=== PATIENT | male | born 1950 | race Caucasian/White ===

== ENCOUNTER 2020-03-11 08:18 | Outpatient (CLI) | payer MEDICARE, OTHER, SELFPAY ==
--- NOTE | ~2020-03-11 | CT_ITS ---
EXAMINATION:CT lung screening DATE: 03/11/2020 08:39 INDICATION: Personal history of nicotine dependence. Current smoker with 54 pack year history. TECHNIQUE: Computed tomography (CT) of the chest was performed without intravenous contrast. Automate d exposure control and iterative reconstruction technique were employed. The dose-length product (DLP ) was 122.87 mGy-cm. COMPARISON: Chest CT 02/06/2019 FINDINGS: There is mild emphysema. There is mild atelectasis bilaterally. Calcified bilateral pulmona ry nodules and calcified hilar and mediastinal lymph nodes are consistent with old granulomatous dise ase. There are a few nodules in the lungs measuring up to 2 mm. There is a new 5 mm nodule in left up per lobe. No pleural effusion. The heart size is normal. There are coronary artery calcifications. No pericardial effusion. There is mild thoracic spondylosis. There is upper thoracic levoscoliosis. IMPRESSION: 1. Lung-RADS category 3: Probably benign. Further evaluation is recommended with noncontrast low-dose chest CT in 6 months. Reviewed, dictated and finalized at location A. IMPRESSION: 1. Lung-RADS category 3: Probably benign. Further evaluation is recommended wit h noncontrast low-dose chest CT in 6 months.
== END 2020-03-11 08:19 | disposition home or self-care (01) ==
PROVIDERS: PCP Emergency Medicine; Visit Provider Emergency Medicine
DX: Z12.2 Encounter for screening for malignant neoplasm of respiratory organs (principal); Z87.891 Personal history of nicotine dependence
CPT/HCPCS: G0297

== ENCOUNTER 2020-10-14 08:26 | Outpatient (CLI) | payer MEDICARE, OTHER, SELFPAY ==
--- NOTE | ~2020-10-14 | CT_ITS ---
EXAMINATION: CT chest wo con DATE: 10/14/2020 08:57 INDICATION: Follow-up pulmonary nodule TECHNIQUE: Computed tomography (CT) of the chest was performed without intravenous contrast. The dose -length product was 268.57 mGy-cm. Automated exposure control and iterative reconstruction technique were employed. COMPARISON: CT dated 03/11/2020 FINDINGS: There are a few scattered pulmonary nodules measuring 2 mm or less. There are calcified pul monary nodules bilaterally, consistent with chronic granulomatous disease. Mild emphysema. No endobro nchial lesions. There is right middle lobe atelectasis. No new pulmonary nodules or masses. Calcified hilar and mediastinal lymph nodes, consistent with chronic granulomatous disease. There is coronary atherosclerosis. Mild thoracic spondylosis. There is upper thoracic levoscoliosis. IMPRESSION: 1. Stable likely benign pulmonary nodules. Twelve-month interval low-dose CT chest recommended. 2: Mild emphysema. Reviewed, dictated and finalized at location A. ZAG STITCHER IMPRESSION: 1. Stable likely benign pulmonary nodules. Twelve-month interval low-dose CT ch est recommended. 2: Mild emphysema.
== END 2020-10-14 08:27 | disposition home or self-care (01) ==
PROVIDERS: PCP Emergency Medicine; Visit Provider Emergency Medicine
DX: R91.1 Solitary pulmonary nodule (principal); J43.9 Emphysema, unspecified; R91.8 Other nonspecific abnormal finding of lung field
CPT/HCPCS: 71250

== ENCOUNTER 2021-12-03 08:58 | Outpatient (CLI) | payer MEDICARE, OTHER, SELFPAY ==
--- NOTE | ~2021-12-03 | CT_ITS ---
EXAMINATION: CT diagnostic chest wo con EXAM DATE: 12/03/2021 09:11 INDICATION: Solitary lung nodule. TECHNIQUE: Spiral CT of the chest without contrast. Axial, coronal and sagittal images of the chest were reviewed. Coronal maximum intensity pixel images of chest reviewed. The dose-length product ( DLP) for this examination was 198.08 mGy-cm. The exposure was tailored according to patient size (au to mA exposure control), and iterative reconstruction (ASIR) was used as additional dose reduction te chnique. Comparison is made to prior examination from 10/14/2020. FINDINGS: Few scattered punctate calcified and noncalcified granulomata unchanged. No new or suspici ous pulmonary nodules. There is mild emphysema and hyperinflation. There are no pleural or pericardi al effusions. Tracheobronchial tree is patent. There is no mediastinal, hilar or axillary lymphad enopathy. There is no pneumothorax. Heart normal in size. There is mild to moderate coronary ar terial calcification, arterial sclerosis. Upper abdomen is unremarkable. There is mild thoracic sp ondylosis without osteoblastic or osteolytic lesions identified. IMPRESSION: 1. Mild emphysema and hyperinflation. 2. Scattered postinfectious residua. Reviewed, dictated and finalized at location A. NER FURNITURE
== END 2021-12-03 08:59 | disposition home or self-care (01) ==
LOC: ANHIMG 09:01
PROVIDERS: PCP Emergency Medicine; Visit Provider Emergency Medicine
DX: R91.1 Solitary pulmonary nodule (principal); I25.10 Atherosclerotic heart disease of native coronary artery without angina pectoris; M47.814 Spondylosis without myelopathy or radiculopathy, thoracic region; I70.0 Atherosclerosis of aorta; J43.9 Emphysema, unspecified
CPT/HCPCS: 71250

== ENCOUNTER 2022-03-18 07:40 | Outpatient (CLI) | payer MEDICARE, OTHER, SELFPAY ==
--- NOTE | ~2022-03-18 | CT_ITS ---
EXAMINATION: CT abdomen pelvis wo/w con DATE: 03/18/2022 08:20 INDICATION: Hematuria TECHNIQUE: Computed tomography (CT) of the abdomen and pelvis was performed without intravenous contr ast. CT of the abdomen and pelvis was then performed with a total of 130 mL Omnipaque 300 intravenous contrast using a double-bolus technique for simultaneous opacification of the renal parenchyma and r enal collecting system. The dose-length product (DLP) was 1177.33 mGy-cm. Automated exposure control and iterative reconstruction technique were employed. COMPARISON: 09/13/2019 FINDINGS: There is mild atelectasis of the right middle lobe. The heart size is normal. Punctate calc ifications in an otherwise normal spleen likely represent healed granulomatous disease. The liver, pa ncreas, gallbladder, and adrenal glands are normal. Cysts of the kidneys measure up to 3.5 cm on the left. No suspicious renal or urothelial lesion is identified. No stones are identified in the kidneys , ureters, or bladder. There is no hydronephrosis or hydroureter. No pathologically enlarged abdomina l or pelvic lymph nodes are identified. There is no free intraperitoneal gas or evidence of bowel obs truction. There is chronic fusiform enlargement at the origin of the right common iliac artery which measures up to 2.5 cm. There is moderate lumbar spondylosis. IMPRESSION: 1. No CT correlate for the patient's symptoms. Reviewed, dictated and finalized at location A.
[2022-03-18 08:05] LABS: Estimated Glomerular Filt Rate > 60
== END 2022-03-18 07:41 | disposition home or self-care (01) ==
LOC: ANHIMG 07:44
PROVIDERS: PCP Emergency Medicine; Visit Provider Emergency Medicine
DX: R31.9 Hematuria, unspecified (principal)
CPT/HCPCS: 74178; Q9967

== ENCOUNTER 2022-12-12 07:08 | Outpatient (CLI) | payer MEDICARE, OTHER, SELFPAY ==
--- NOTE | ~2022-12-12 | CT_ITS ---
EXAMINATION:CT diagnostic chest wo con DATE: 12/12/2022 07:50 INDICATION: Lung nodule. TECHNIQUE: Computed tomography (CT) of the chest was performed without intravenous contrast. Automate d exposure control and iterative reconstruction technique were employed. The dose-length product (DLP ) was 113.22 mGy-cm. COMPARISON: Chest CT 12/03/2021 FINDINGS: There is mild atelectasis bilaterally. Calcified bilateral pulmonary nodules and calcified hilar and mediastinal lymph nodes are consistent with old granulomatous disease. There are 2 mm and 3 mm nodules in right middle lobe. There is a 2 mm nodule in left lower lobe. There is mild emphysema. No pleural effusion. The heart size is normal. There are coronary artery calcifications. No pericard ial effusion. There is mild thoracic spondylosis. IMPRESSION: 1. Lung-RADS category 2: Benign appearance or behavior. Reviewed, dictated and finalized at location A.
--- NOTE | ~2022-12-12 | CT_ITS ---
EXAMINATION: CT abdomen pelvis wo/w con DATE: 12/12/2022 08:03 INDICATION: Microscopic hematuria TECHNIQUE: Computed tomography (CT) of the abdomen and pelvis was performed without and with 100 mL O mnipaque-350 intravenous contrast. Automated exposure control and iterative reconstruction technique were employed. The dose-length product was 1659.37 mGy-cm. COMPARISON: None FINDINGS: Calcified nodule at the lingula and a couple small calcified splenic nodules consistent with old gran ulomatous disease. Mild discoid atelectasis at the lingula and right middle lobe. Heart size is marcello l. Atherosclerotic coronary artery calcific location. Aortic valve calcific location. No pericardial or pleural effusion. Liver, gallbladder, pancreas and right adrenal gland are normal. Unchanged tiny dystrophic calcification at the left adrenal gland likely sequela of prior infection or hemorrhage. B ilateral renal cysts the largest on the left measuring 3.9 cm. Bilateral kidneys are otherwise unrema rkable symmetric enhancement, no urolithiasis or hydronephrosis. Bilateral renal collecting systems a nd ureters are opacified in their near entirety and demonstrate no urothelial irregularities or filli ng defects. Bladder is normal aside from changes likely prior transurethral prostatectomy. There is m oderate colonic diverticulosis with a sigmoid predominance. There is no adjacent inflammatory change to suggest diverticulitis. Small bowel and appendix are normal. No free intraperitoneal gas or fluid . No pathologically enlarged abdominal or pelvic lymphadenopathy. There is calcified atherosclerosis of the aorta and many of the other arteries. 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 Small bilateral fat-containing inguinal hernias. Moderate lower lumba r spondylosis. IMPRESSION: 1. No urolithiasis or other evident etiology for reported hematuria. 2. Diverticulosis. Reviewed, dictated and finalized at location B.
[2022-12-12 07:45] LABS: Estimated Glomerular Filt Rate > 60
== END 2022-12-12 07:09 | disposition home or self-care (01) ==
PROVIDERS: PCP Emergency Medicine; Visit Provider Emergency Medicine
DX: R91.1 Solitary pulmonary nodule (principal); R31.29 Other microscopic hematuria; K57.30 Diverticulosis of large intestine without perforation or abscess without bleeding
CPT/HCPCS: 71250; 74178; Q9967

== ENCOUNTER 2023-12-15 08:05 | Outpatient (CLI) | payer MEDICARE, OTHER, SELFPAY ==
--- NOTE | ~2023-12-15 | CT_ITS ---
CT Scan of the Chest without Contrast: Clinical Indication: Lung cancer screening, history of nicotine dependence Technique: Contiguous sections were acquired throughout the chest without intravenous contrast. Dose reduction technique was used on this scan by utilizing automated exposure control and iterative recon struction technique. The dose-length product (DLP) was 148.11 mGy-cm. COMPARISON: 12/12/2022 Findings: There is no evidence of any significant mediastinal, hilar or axillary lymphadenopathy. Extensive cor onary artery calcifications are present. There is no evidence of pleural or pericardial effusion. Several calcified granulomas are noted. There is linear scarring at the right middle lobe and lingula . Images through the upper abdomen reveal no abnormalities. Impression: Lung RADS 2: Benign appearance. 12 month follow-up screening CT advised. Reviewed, dictated and finalized at [facility]. Impression: Lung RADS 2: Benign appearance. 12 month follow-up screening CT advised.
== END 2023-12-15 08:06 | disposition home or self-care (01) ==
LOC: ANHIMG 08:07
PROVIDERS: PCP Emergency Medicine; Visit Provider Emergency Medicine
DX: Z12.2 Encounter for screening for malignant neoplasm of respiratory organs (principal); Z87.891 Personal history of nicotine dependence
CPT/HCPCS: 71271

== ENCOUNTER 2024-01-05 07:00 | Outpatient (NON) | payer MEDICARE, OTHER, SELFPAY | END 2024-01-05 07:01 | disposition home or self-care (01) | PROVIDERS: PCP Emergency Medicine; Visit Provider Internal Medicine Gastroenterology | DX: Z12.11 Encounter for screening for malignant neoplasm of colon (principal); K63.5 Polyp of colon | CPT/HCPCS: 88305 ==

== ENCOUNTER 2024-01-05 07:58 | Day surgery (SDC) | payer MEDICARE, OTHER, SELFPAY ==
[2023-12-04 14:52] VITALS: BMI 29.3
[2023-12-21 12:56] VITALS: BMI 28.8
--- NOTE | 2024-01-04 13:00 | PM.HPGS ---
History of Present Illness History of Present Illness Consent: Risks, benefits, and alternatives have been discussed and questions answered. Patient agrees to proceed with procedure. Chief complaint: Polyp of colon Narrative: Jeremy Dinero is a 73 year old male referred for colon cancer screening; he had a colonoscopy 6 years ago with removal of 2 innocent polyps. Review of Systems Review of Systems: All systems reviewed & are unremarkable except as noted in HPI and below PMFSH Past Medical History Medical History Emphysema, unspecified mild Hyperlipidemia Family History Family History Other Diabetes mellitus Hypertension Social History Social History Smoking packs per day: 0.5 Smoking cigarettes per day: 10.0 Years smoked: 40 Smoking pack-years: 20.00 Smoking status: Current every day smoker Tobacco type: cigarettes Alcohol intake: current Drinks per week: 10 Substance use: never Substance use type: does not use Living arrangements: with family Spiritual care concerns: No Meds Home Medications and Allergies Home Medications Medication Instructions Recorded Confirmed Type meloxicam 15 mg tablet 15 mg PO DAILY 12/21/23 01/05/24 History rosuvastatin 20 mg tablet 20 mg PO HS 12/21/23 01/05/24 History Allergies Allergy/AdvReac Type Severity Reaction Status Date / Time No Known Allergies Allergy Verified 01/05/24 08:44 Exam Const: General: alert Orientation/consciousness: patient oriented x3 Resp: Auscultation: clear to auscultation bilaterally Cardio: Rhythm: regular rhythm GI: GI Palp: Yes Soft to palpation and No Tenderness to palpation present (GI) Neuro: General: patient oriented x3 Assessment and Plan Assessment and plan (1) Colon cancer screening: Code(s): Z12.11 - Encounter for screening for malignant neoplasm of colon Status: Acute Assessment and Plan: Colonoscopy with possible biopsy or polypectomy or cautery or injection of substances.
--- NOTE | 2024-01-05 08:01 | P.PNAN_ITS ---
Anes - Initial Pre Proc Eval Procedure: Operation Date: 01/05/24 10:00 Proposed Procedures p Diagnostic Colonoscopy - Angel Haji MD Date/Time: 01/05/24 08:01 Surgeon: Angel Haji MD Pre Op Diagnosis: Polyp of colon Patient Data Age: 73 Gender: M Height: 1.73 m Weight: 86 kg Allergies Allergy/AdvReac Type Severity Reaction Status Date / Time No Known Allergies Allergy Verified 01/05/24 08:44 Home Medications Medication Instructions Recorded Confirmed Type meloxicam 15 mg tablet 15 mg PO DAILY 12/21/23 01/05/24 History rosuvastatin 20 mg tablet 20 mg PO HS 12/21/23 01/05/24 History Patient hx anesthesia problems: none Family hx anesthesia problems: none Results Review: All pre-operative results and documents have been reviewed as part of the pre-operative evaluation. [facility] Past Medical History Medical History (Updated 01/05/24 @ 08:02 by Edmar Ren DO) Hyperlipidemia Family History Family History (Updated 01/26/12 @ 12:10 by DOCTOR UNKNOWN) Other Diabetes mellitus Hypertension Social History Social History Smoking packs per day: 0.5 Smoking cigarettes per day: 10.0 Years smoked: 40 Smoking pack-years: 20.00 Smoking status: Current every day smoker Tobacco type: cigarettes Alcohol intake: current Drinks per week: 10 Substance use: never Substance use type: does not use Living arrangements: with family Spiritual care concerns: No Anes - Eval Final PreProcedure Day of Procedure 01/05/24 08:01 Patient weight: overweight Heart: regular rate and rhythm Lungs: clear to auscultation Airway: Mallampati scale class II Neurological: alert and oriented Last oral intake: >/= 8 hours ASA classification: III Emergent: no Anesthetic plan: proceed Anesthesia type and monitoring: general GIVS and standard monitoring Results Review: All pre-operative results and documents have been reviewed as part of the pre- operative evaluation. Informed Consent: The patient's anesthetic plan and its attendant risks and benefits were discussed with the patient/family/POA. Questions were solicited and answers provided to the satisfaction of the patient/family/POA.
[2024-01-05 08:46] VITALS: BP 108/65; PULSE 76; RESP 20; TEMP 36.4; O2SAT 96; BMI 28.8
[2024-01-05] MEDS: LACTATED RINGERS 500 ML 150 ML IV CONT (08:53)
[2024-01-05 10:56] VITALS: BP 111/72; PULSE 60; RESP 16; O2SAT 98
[2024-01-05 11:06] VITALS: BP 106/66; PULSE 60; RESP 18; O2SAT 100
[2024-01-05 11:16] VITALS: BP 107/66; PULSE 55; RESP 18; O2SAT 100
--- NOTE | 2024-01-05 12:38 | WPDANESPN ---
Anes - Prog Note Post-Op Date/Time: 01/05/24 12:38 Cardiovascular status: normal Respiratory status: normal Airway patency: baseline Mental status: baseline Post-Op hydration status: normal Vital Signs: Last Vital Signs Temp 36.4 C 01/05/24 08:46 Pulse 55 L 01/05/24 11:16 Resp 18 01/05/24 11:16 BP 107/66 01/05/24 11:16 Pulse Ox 100 01/05/24 11:16 O2 Del Method Room Air 01/05/24 11:16 Pain Score (VAS): 0 I/O: Intake & Output 01/04/24 01/05/24 01/05/24 23:59 07:59 15:59 Intake Total 300 Balance 300 Post-procedural complaints: none Patient Feedback: Patient satisfied with anesthetic care. Other Findings: Patient vital signs back to baseline. Patient denies nausea and vomiting. Patient's pain under control. Patient OK for discharge.
== END 2024-01-05 11:25 | disposition home or self-care (01) ==
PROVIDERS: PCP Emergency Medicine; Visit Provider Internal Medicine Gastroenterology
PROC: 0DJD8ZZ Inspection of Lower Intestinal Tract, Via Natural or Artificial Opening Endoscopic (ICD-10-PCS; CPT 45378; principal; 2024-01-05 10:00)
DX: Z12.11 Encounter for screening for malignant neoplasm of colon (principal); K62.1 Rectal polyp; K57.30 Diverticulosis of large intestine without perforation or abscess without bleeding; Z86.010 Personal history of colon polyps
CPT/HCPCS: 45385

== ENCOUNTER 2024-09-04 16:08 | Emergency (ER) | payer MEDICARE, OTHER, SELFPAY ==
[2024-09-04 16:17] VITALS: BP 128/68; PULSE 72; RESP 16; TEMP 36.4; O2SAT 97
--- NOTE | 2024-09-04 16:24 | ED.URI ---
HPI - URI/Sore Throat General Chief Complaint: Upper Respiratory Infection Stated Complaint: Sinus Infection Symptoms Time Seen by Provider: 09/04/24 16:24 Source: patient Mode of arrival: ambulatory Limitations: no limitations History of Present Illness HPI Narrative: 74 y/o male presented for c/o nasal congestion and cough for one week. Cough is described as harsh and nonproductive. Denies sob, wheezing, n/v/d/f/c. Taking Benadryl and Flonase. Smokes 1/2ppd. Related Data Allergies Allergy/AdvReac Type Severity Reaction Status Date / Time No Known Allergies Allergy Verified 09/04/24 16:21 Review of Systems Review of Systems: CONSTITUTIONAL: Denies body aches, fever, chills, or sweats. EYES: Denies visual changes, redness, or discharge. ENT: Denies rhinorrhea, congestion, sore throat, or otalgia. CARDIOVASCULAR: Denies chest pain, palpitations, or edema. RESPIRATORY: Reports cough, sob, wheezing. GASTROINTESTINAL: Denies abdominal pain, nausea, vomiting, or diarrhea. GENITOURINARY: Denies dysuria or hematuria. SKIN: Denies rash, itching, or wounds. MUSCULOSKELETAL: Denies back pain, joint pain, or myalgia. NEUROLOGIC: Denies headache, numbness, tingling, or weakness. PSYCH: Denies depression or anxiety. All systems reviewed & are unremarkable except as noted in HPI and below PMFSH Past Medical History Medical History Emphysema, unspecified mild Hyperlipidemia Family History Family History Other Diabetes mellitus Hypertension Social History Social History Smoking packs per day: 0.5 Smoking cigarettes per day: 10.0 Years smoked: 40 Smoking pack-years: 20.00 Smoking status: Current every day smoker Tobacco type: cigarettes Alcohol intake: current Drinks per week: 10 Substance use: never Substance use type: does not use Living arrangements: with family Spiritual care concerns: No Comments At time of signature, I have reviewed and agree with nursing past medical, surgical, social and family history unless otherwise noted. Please see nursing chart for further information. There is no relevant family history pertinent to the presenting complaint Exam Narrative: GENERAL: Well-appearing, in no acute distress. EYES: EOMI. No redness or drainage. Conjunctivae normal. ENT: Mucous membranes pink and moist. No rhinorrhea. TMs normal bilaterally. Throat normal. Uvula midline. CHEST: No respiratory distress. Faint scattered crackles to bases. HEART: Regular rate and rhythm. No murmur appreciated. ABDOMEN: Soft, nontender, nondistended, normal active bowel sounds. SKIN: Warm, dry, no rash. Capillary refill normal. Normal skin turgor. NEURO: Alert and oriented x3. Gait steady. PSYCH: Normal affect. Course Course Emergency Course: Patient is aware of diagnosis, understands and agrees to treatment plan. Anticipatory guidance given. Patient agrees to follow-up as directed and is aware of reasons to seek care at the emergency department. Portions of this record may have been created with voice recognition software Level of Care: Express Care Visit Vital Signs Vital signs: Vital Signs Temperature 97.6 F 09/04/24 16:17 Pulse Rate 72 09/04/24 16:17 Respiratory Rate 16 09/04/24 16:17 Blood Pressure 128/68 09/04/24 16:17 Pulse Oximetry 97 09/04/24 16:17 Temperature 97.6 F 09/04/24 16:17 Pulse Rate 72 09/04/24 16:17 Respiratory Rate 16 09/04/24 16:17 Blood Pressure 128/68 09/04/24 16:17 Pulse Oximetry 97 09/04/24 16:17 MDM - URI/Sore Throat MDM Narrative Medical decision making narrative: Discussed physical exam findings. Advised supportive measures and signs/symptoms to go to the ER. Pt is appropriate for outpt treatment and f/u. Differential Diagnosis Differential diagnosis: Likely upper respiratory infection, sinusitis, viral infection, bronchitis and other (pneumonia) Discharge Plan Discharge Clinical Impression: Upper respiratory infection Patient Disposition: Home, Self-Care Condition: Stable Instructions: Antibiotic Form, Upper Respiratory Infection (ED) Additional Instructions: Recommend Flonase spray and Zyrtec (or Claritin/Rachel) over the counter Cough syrup may cause drowsiness; avoid driving or take it at night time. Tylenol 1000mg every 8 hours as needed for pain Symptomatic treatment includes: rest, fluids, and increase humidity of the air at home. Follow up with your primary care provider in 1 week. Go to the ER for worsening symptoms or concerns. Prescriptions: New azithromycin [Zithromax Z-Dino] 250 mg tablet See Rx Instructions .ROUTE .COMPLEX Qty: 6 0RF Rx Instructions: For 250 mg dose pack: take 500 mg today (day 1), then 250 mg for 4 days (days 2-5) methylprednisolone [Medrol (Dino)] 4 mg tablets,dose pack See Rx Instructions .ROUTE .COMPLEX Qty: 21 0RF Rx Instructions: orally per package directions Follow-up/Referrals: Jesse Fernandes MD [Primary Care Provider] - Time of Disposition: 16:30
== END 2024-09-04 16:32 | disposition home or self-care (01) ==
PROVIDERS: Emergency Provider Nurse Practitioner Family; PCP Emergency Medicine
DX: J06.9 Acute upper respiratory infection, unspecified (principal); F17.210 Nicotine dependence, cigarettes, uncomplicated; E78.5 Hyperlipidemia, unspecified
CPT/HCPCS: 99213; G0463

== ENCOUNTER 2024-12-15 08:26 | Outpatient (CLI) | payer MEDICARE, OTHER, SELFPAY ==
--- NOTE | ~2024-12-15 | CT_ITS ---
CT Scan of the Chest without Contrast: Clinical Indication: Lung cancer screening, nicotine dependence Technique: Contiguous sections were acquired throughout the chest without intravenous contrast. Dose reduction technique was used on this scan by utilizing automated exposure control and iterative recon struction technique. The dose-length product (DLP) was 137.00 mGy-cm. COMPARISON: 12/15/2023 Findings: There is no evidence of any significant mediastinal, hilar or axillary lymphadenopathy. Coronary tiffany ry calcifications are present. There is no evidence of pleural or pericardial effusion. Right middle lobe scarring present. Calcified left upper lobe granuloma present. Images through the upper abdomen reveal no abnormalities. Impression: Lung RADS 2: Benign appearance. 12 month follow-up screening CT advised. Reviewed, dictated and finalized at location . Impression: Lung RADS 2: Benign appearance. 12 month follow-up screening CT advised.
--- OUTSIDE RECORDS SUMMARY | 2024-12-15 08:34 | XMS_ITS | Clinical Summary ---
Author Organization [facility] Address [address] [place] [address] Care Team Providers Care Soda Fountain Clerk Name Role Phone García Rolon MD Primary Care Provider [phone] Source Comments [facility],non-owned Affiliates and Associated Physician Practices is amultiple site organization consisting of ambulatory clinics and hospital sitesin [place], [place], [place] and [place]. This disclosure is being madepursuant to the Care Everywhere program and may not contain all information available regarding this patient. Last updated 18.[facility] Allergies No known active allergies Medications * Be aware that medications may not be up to date on this document. Alwaysverify current medications with the patient. Medication Sig Dispensed Refills Start Date End Date Status solifenacin (VESICARE) 5 MG tablet Take 5 mg by mouth once daily Active Social History Tobacco Use Types Packs/Day Years Used Date Smoking Tobacco: Every Day Smokeless Tobacco: Never Sex and Gender Information Value Date Recorded Sex Assigned at Not on file Gender Identity Not on file Sexual Orientation Not on file Last Filed Vital Signs Vital Sign Reading Time Taken Comments Blood Pressure 100/72 10/03/2017 10:22 AM AUTHOR'S AGENT Pulse 91 10/03/2017 10:22 AM AUTHOR'S AGENT Temperature 36.9 C (98.5 F) 10/03/2017 10:22 AM AUTHOR'S AGENT Respiratory Rate 16 10/03/2017 10:22 AM AUTHOR'S AGENT Oxygen Saturation 98% 10/03/2017 10:22 AM AUTHOR'S AGENT Inhaled Oxygen Concentration - - Weight 87.5 kg (193 lb) 10/03/2017 10:22 AM AUTHOR'S AGENT Height 175.3 cm (5' 9 ) 10/03/2017 10:22 AM AUTHOR'S AGENT Body Mass Index 28.5 10/03/2017 10:22 AM AUTHOR'S AGENT Plan of Treatment Health Maintenance Due Date Last Done Comments MEDICARE AWV 12 MONTHS 1948 HEPATITIS C SCREENING 03/10/1966 DTAP/TDAP/TD VACCINES (1 - Tdap) 1967 PNEUMOCOCCAL VACCINE 50+ (1 of 2 - PCV) 1967 ZOSTER VACCINE (1 of 2) 1998 SCREENING FOR DIABETES 10/03/2017 Respiratory Syncytial Virus (RSV) Vaccine Pt: or over 60 yrs (1 - 1-dose 75+ series) 2023 COVID-19 VACCINE ( - 2023-2 5 season) 2024 INFLUENZA VACCINE (#1) 2024 DEPRESSION SCREENING 09/28/2024 HEPATITIS B VACCINE Aged Out No longe r eligible based on patient's age to complete this topic HIB VACCINE Aged Out No longer eligi ble based on patient's age to complete this topic HPV VACCINE Aged Out No longer eligi ble based on patient's age to complete this topic MENINGOCOCCAL (Group B) VACC INE SHARED DECISION-MAKING Aged Out No longer eligibl e based on patient's age to complete this topic MENINGOCOCCAL GROUPS A/C/Y/W VACCINE Aged Out No longer eligible b ased on patient's age to complete this topic Care Teams Soda Fountain Clerk Relationship Specialty Start Date End Date García Rolon MD [address] [place] [address] PCP - General 08/11/18
--- OUTSIDE RECORDS SUMMARY | 2024-12-15 08:34 | XMS_ITS | Encounter Summary ---
Author Organization [facility] Address [address] [place] [id number] Care Team Providers Care Rubber Goods Tester Water Name Role Phone Jesse Fernandes MD Primary Care Provider [phone] Encounter Details Date Type Department Care Team (Late st Contact Info) Description 12/29/2022 [facility] [address] [place] [address] Romi Alexander MA Social History Tobacco Use Types Packs/Day Years Used Date Smoking Tobacco: Every Day Cigarettes Smokeless Tobacco: Never Alcohol Use Standard Drinks/Week Comments Yes 20 (1 standard drink = 0.6 oz pu re alcohol) Sex and Gender Information Value Date Recorded Sex Assigned at Not on file Legal Sex Male 10:30 AM CDT Gender Identity Not on file Sexual Orientation Not on file COVID-19 Exposure Response Date Recorded In the last 10 days, have yo u been in contact with someone who was confirmed or suspected to have Coronavirus/COVID-19? No / Unsure 12/22/2022 12:58 PM CDT documented as of this encounter Plan of Treatment Upcoming Encounters Date Type Department Care Team (Late st Contact Info) Description 05/01/2025 10:00 AM CDT Office Visit [facility] [address] [place] [address] Darryl Mahan MD [facility] [address] [place] [address] documented as of this encounter Procedures Procedure Name Priority Date/Time Associated Diagnosis Comments COMPREHENSIVE METABOLIC PANEL Routine 12/07/2023 LIPID PANEL Routine 12/07/2023 CBC, MANUAL DIFF Routine 12/07/2023 THYROID STIM HORMONE TSH Routine 12/07/2023 VITAMIN D, 25 OH Routine 12/07/2023 COMPREHENSIVE METABOLIC PANEL Routine 12/08/2022 LIPID PANEL Routine 12/08/2022 documented in this encounter Results * VITAMIN D, 25 OH (12/07/2023) Pathologist [facility] VITAMIN D 25 HYDROXY S/P/B 41 12/07/2023 Default History Genericprovider LABORATORY Final Result * COMPREHENSIVE METABOLIC PANEL (12/07/2023) Pathologist [facility] SODIUM S/P/B 142 GLUCOSE 96 mg/dL AST 18 BUN 19 CREATININE S/P/B 0.90 0.7 - 1.3 CALCIUM S/P/B 9.3 POTASSIUM S/P/B 4.3 CHLORIDE S/P/B 107 ALT 19 GFR ESTIMATE 89 us Default History Genericprovider LABORATORY Final Result * LIPID PANEL (12/07/2023) Pathologist [facility] CHOLESTEROL 123 TRIGLYCERIDES 138 HDL 45 LDL (CALCULATED) 56 NON HDL CHOLESTEROL 78 us Default History Genericprovider LABORATORY Final Result * CBC, MANUAL DIFF (12/07/2023) Pathologist [facility] WBC 7.4 HGB 16.3 HCT 47.8 PLT 247 us Default History Genericprovider LABORATORY Final Result * THYROID STIM HORMONE TSH (12/07/2023) Pathologist [facility] TSH 4.24 us Default History Genericprovider LABORATORY Final Result * COMPREHENSIVE METABOLIC PANEL (12/08/2022) SODIUM S/P/B 140 GLUCOSE 90 mg/dL AST 15 BUN 19 CREATININE S/P/B 0.88 0.7 - 1.3 CALCIUM S/P/B 9.1 POTASSIUM S/P/B 4.2 CHLORIDE S/P/B 105 ALT 17 GFR ESTIMATE 90 12/08/2022 us Default History Genericprovider LABORATORY Edited Result - Final * LIPID PANEL (12/08/2022) CHOLESTEROL 145 TRIGLYCERIDES 143 HDL 38 LDL (CALCULATED) 84 NON HDL CHOLESTEROL 108 12/08/2022 us Default History Genericprovider LABORATORY Edited Result - Final documented in this encounter Visit Diagnoses Not on filedocumented in this encounter Care Teams Rubber Goods Tester Water Relationship Specialty Start Date End Date Jesse Fernandes MD [address] [place] [address] PCP - General FAMILY PRACTICE 12/09/22 documented as of this encounter
--- OUTSIDE RECORDS SUMMARY | 2024-12-15 08:34 | XMS_ITS | Clinical Summary ---
Author Organization [facility] Address [address] [place] [address] Care Team Providers Care Radiation Officer Name Role Phone Jesse Fernandes MD Primary Care Provider [phone] Allergies No known active allergies Medications atorvastatin (LIPITOR) 10 MG tablet Take 1 tablet (10 mg total) by mouth daily. 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 Hyperlipidemia 12/17/2012 Family History Medical History Relation Comments Cancer Father unknown Heart Attack Maternal Grandmother Stroke Maternal Grandmother CABG Mother x3 Coronary artery disease Mother Heart Attack Mother Hypertension Mother Heart Attack Paternal Grandfather Heart Attack Paternal Grandmother Relation Status Comments Brother 1 Alive Brother 2 Alive Father Maternal Grandfather Maternal Grandmother Mother Paternal Grandfather Paternal Grandmother Sister 1 Alive Sister 2 Alive Sister 3 Alive Social History Tobacco Use Types Packs/Day Years Used Date Smoking Tobacco: Every Day Cigarettes Smokeless Tobacco: Never Tobacco Cessation:Ready to Q uit: Not Asked; Counseling Given: Not Answered Alcohol Use Standard Drinks/Week Comments Yes 20 (1 standard drink = 0.6 oz pu re alcohol) Sex and Gender Information Value Date Recorded Sex Assigned at Not on file Legal Sex Male 10:30 AM CDT Gender Identity Not on file Sexual Orientation Not on file Last Filed Vital Signs Vital Sign Reading Time Taken Comments Blood Pressure 106/54 04/25/2024 10:06 AM CDT Pulse 78 04/25/2024 10:06 AM CDT Temperature - - Respiratory Rate - - Oxygen Saturation 97% 04/25/2024 10:06 AM CDT Inhaled Oxygen Concentration - - Weight 87.6 kg (193 lb 3.2 oz) 04/25/2024 10:06 AM CDT Height 175.3 cm (5' 9 ) 04/25/2024 10:06 AM CDT Body Mass Index 28.53 04/25/2024 10:06 AM CDT Plan of Treatment Upcoming Encounters Date Type Department Care Team (Late st Contact Info) Description 05/01/2025 10:00 AM CDT Office Visit [facility] [address] [place] [address] Darryl Mahan MD [facility] [address] [place], [place] [id number] Health Maintenance Due Date Last Done Comments Hepatitis C 1966 DTaP, Tdap and Td Vaccines (1 - Tdap) 1967 Zoster Vaccines (1 of 2) 1998 AAA SCREENING 2013 Annual Medicare Wellness Visit 2013 RSV Immunization or 60+ Years (1 - 1-dose 75+ series) 2023 COVID-19 Vaccine ( season) 2024 06/27/2022, 02/05/2022, 07/31/2021, Additional history exists Influenza Adult (#1) 2024 07/07/2023, 07/18/2019, 07/21/2018, Additional history exists ASCVD LDL 12/06/2024 12/07/2023, 05/0 04/2023, 12/08/2022 Pneumococcal Vaccine: 65+ Years Completed 10/29/2015, 08/07/2015 Meningococcal B Vaccine Aged Out No l onger eligible based on patient's age to complete this topic Meningococcal Vaccine Aged Out No stacie harjeet eligible based on patient's age to complete this topic RSV Immunizations Under 20 Months Aged Out No longer eligible based on patient's age to complete this topic Procedures Procedure Name Priority Date/Time Associated Diagnosis Comments LIPID PANEL Routine 12/07/2023 from Last 3 Months or Most Recently Relevant to Health Maintenance Results * LIPID PANEL (12/07/2023) CHOLESTEROL 123 TRIGLYCERIDES 138 HDL 45 LDL (CALCULATED) 56 NON HDL CHOLESTEROL 78 us Default History Genericprovider LABORATORY Final Result from Last 3 Months or Most Recently Relevant to Health Maintenance Insurance [facility] Care Teams Radiation Officer Relationship Specialty Start Date End Date Jesse Fernandes MD [address] [place] [address] PCP - General FAMILY PRACTICE 12/09/22
== END 2024-12-15 08:27 | disposition home or self-care (01) ==
LOC: ANHIMG 08:29
PROVIDERS: PCP Emergency Medicine; Visit Provider Emergency Medicine
DX: Z12.2 Encounter for screening for malignant neoplasm of respiratory organs (principal); Z87.891 Personal history of nicotine dependence
CPT/HCPCS: 71271

== ENCOUNTER 2025-03-01 09:20 | Outpatient (CLI) | payer MEDICARE, OTHER, SELFPAY ==
--- NOTE | ~2025-03-01 | CT_ITS ---
CT of the Abdomen and Pelvis: Indication: Chronic pancreas Technique: 2.5 mm axial scans were obtained through the abdomen and pelvis following intravenous adm inistration of 100 cc of Omnipaque 350. Dose reduction technique was used on this scan by utilizing a utomated exposure control and iterative reconstruction technique. The dose-length product (DLP) was 5 74.69 mGy-cm. COMPARISON: 12/12/2022 Findings: Scans through the lung bases are unremarkable. The liver, spleen, pancreas, gallbladder, adrenals and kidneys are within normal limits. There are at herosclerotic calcifications of the aorta. There is mild aneurysmal dilatation of the distal dilated to 3.4 cm in diameter. 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 No lymp hadenopathy. No bowel obstruction or bowel wall thickening. There is sigmoid diverticulosis. Images through the pelvis were performed. Urinary bladder unremarkable. No pelvic mass seen. Impression: Normal pancreas. 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 Extensive ather osclerotic calcification. Reviewed, dictated and finalized at location . Impression: Normal pancreas. 3.4 cm infrarenal aortic aneurysm and 3 cm aneurysm of the right common iliac a rtery. Extensive atherosclerotic calcification.
--- OUTSIDE RECORDS SUMMARY | 2025-03-01 09:33 | XMS_ITS | Continuity of Care Document ---
Author Organization [facility] Address [address] [facility] [place] [address] [place] [address] Phone Care Team Providers Care Aqua Ammonia Operator Name Role Phone Jesse Fernandes MD Unavailable Unavailable Allergies, Adverse Reactions, Alerts Substance Reaction Status Criticality No Known Allergies Active No Inform ation Medications Medication Instructions Dosage Effective Dates (start - stop) Status Comments Lipitor 10 mg tablet take 1 tablet by or al route every day 10 MG - Active Procedures Procedure Date PPPS, subseq visit OFFICE/OUTPATIENT VISIT, EST Medicare Addendum PPPS, subseq visit OFFICE/OUTPATIENT VISIT, EST OFFICE/OUTPATIENT VISIT, EST PPPS, subseq visit OFFICE/OUTPATIENT VISIT, EST OFFICE/OUTPATIENT VISIT, EST OFFICE/OUTPATIENT VISIT, EST PPPS, subseq visit PPPS, subseq visit OFFICE/OUTPATIENT VISIT, EST PPPS, subseq visit OFFICE/OUTPATIENT VISIT, EST OFFICE/OUTPATIENT VISIT, EST OFFICE/OUTPATIENT VISIT, EST OFFICE/OUTPATIENT VISIT, EST PPPS, subseq visit OFFICE/OUTPATIENT VISIT, EST OFFICE/OUTPATIENT VISIT, EST OFFICE/OUTPATIENT VISIT, EST OFFICE/OUTPATIENT VISIT, EST OFFICE/OUTPATIENT VISIT, EST OFFICE/OUTPATIENT VISIT, EST OFFICE/OUTPATIENT VISIT, EST OFFICE/OUTPATIENT VISIT, EST OFFICE/OUTPATIENT VISIT, EST OFFICE/OUTPATIENT VISIT, EST OFFICE/OUTPATIENT VISIT, EST PREV VISIT, EST, AGE 40-64 Advance Directives Directive Yes / No Effective Date File Name No Information Encounters Encounter Description Practice Location Reason(s) For Visit Diagnoses Date Provider Providers Copied on Encounter [facility], [address], [place], [place], [address], [place] tel:[phone] [facility] physical (chief complaint) Encounter for general adult medical examination without abnormal findings 0 5 Dom Molina. [address], [place], [place], [address] , [place]. tel:[phone] Referring Provider: Wilmer Gamboa [address], [place], [place], [address]. tel:[phone] OFFICE/OUTPA TIENT VISIT, [facility], [address], [place], [place], [address], [place] tel:[phone] [facility] HLP (chief complaint) polyp1 (chief complaint) emphysema1 (chief complaint) Mixed hyperlipidemiaCentr ilobular emphysemaPolyp of colonOther bursitis of left elbow 4 Dom Herr [address], [place], [place], [address] , [place]. tel:[phone] Referring Provider: Jesse Fernandes [address], [place], [place], [address]. tel:[phone] OFFICE/OUTPA TIENT VISIT, EST [facility], [address], [place], [place], [address], [place] tel:[phone] [facility] physical (chief complaint) Encounter for general adult medical exam w abnormal findingsMixed hyperlipidemiaCentr ilobular emphysemaOther bursitis of left elbowPolyp of colon 0 4 Dom Molina. [address], [place], [place], [address] , [place]. tel:[phone] Referring Provider: Wilmer Gamboa [address], [place], [place], [address]. tel:[phone] OFFICE/OUTPA TIENT VISIT, [facility], [address], [place], [place], [address], [place] tel:[phone] [facility] HLP (chief complaint) lung nodule1 (chief complaint) hematuria1 (chief complaint) Benign essential microscopic hematuriaChronic pancreatitisMixed hyperlipidemiaSolit duglas lung nodule Nov- 3 Dom Molina. [address], [place], [place], [address] , [place]. [phone] Referring Provider: Wilmer Gamboa [address], [place], [address]. tel:[phone] OFFICE/OUTPA TIENT VISIT, [facility], [address], [place], [place], [address], [place] tel:[phone] [facility] physical (chief complaint) Mixed hyperlipidemiaBenig n essential microscopic hematuriaSolitary lung noduleChronic pancreatitisEncount er for general adult medical exam w abnormal findings 3 Dom Molina. [address], [place], [place], [address] , [place]. tel:[phone] Referring Provider: Wilmer Gamboa [address], [place], [place], [address]. tel:[phone] OFFICE/OUTPA TIENT VISIT, [facility], [address], [place], [place], [address], [place] tel:[phone] [facility] hematuria1 (chief complaint) HLP (chief complaint) emphysema1 (chief complaint) HematuriaCentrilobu lar emphysemaMixed hyperlipidemia Jermaine- 2 Dom Molina. [address], [place], [place], [address] , [place]. tel:[phone] Referring Provider: Wilmer Gamboa [address], [place], [address]. tel:[phone] OFFICE/OUTPA TIENT VISIT, [facility], [address], [place], [address], [place] [phone] [facility] physical (chief complaint) Encounter for general adult medical exam w abnormal findingsSolitary lung noduleBPH w/o lower urinary tract symptomsHyperlipide ashlee Nov-0 2 Dom Molina. [address], [place], [place], [address] , [place]. [phone] Referring Provider: Wilmer Gamboa [address], [place], [place], [address]. tel:[phone] OFFICE/OUTPA TIENT VISIT, [facility], [address], [place], [place], [address], [place] tel:[phone] [facility] physical (chief complaint) Encounter for general adult medical exam w abnormal findingsBPH w/o lower urinary tract symptomsHyperlipide miaChronic pancreatitisSolitar y lung noduleEncounter for general adult medical examination without abnormal findings 1 Dom Molina. [address], [place], [address] , [place]. tel:[phone] Referring Provider: Wilmer Gamboa [address], [place], [place], [address]. tel:[phone] [facility], [address], [place], [place], [address], [place] tel:[phone] [facility] Solitary lung nodule 0 Dom Molina. [address], [place], [place], [address] , [place]. [phone] Referring Provider: Wilmer Gamboa [address], [place], [place], [address]. tel:[phone] OFFICE/OUTPA TIENT VISIT, [facility], [address], [place], [place], [address], [place] tel:[phone] [facility] Physical (chief complaint) Encounter for general adult medical exam w abnormal findingsHyperlipide miaBPH w/o lower urinary tract symptomsTobacco useChronic pancreatitis 0 Dom Molina. [address], [place], [place], [address] , [place]. tel:[phone] Referring Provider: Wilmer Gamboa [address], [place], [address]. tel:[phone] OFFICE/OUTPA TIENT VISIT, [facility], [address], [place], [address], [place] tel:[phone] [facility] hematuria1 (chief complaint) HLP (chief complaint) pancreatit is1 (chief complaint) tobacco1 (chief complaint) HematuriaChronic pancreatitisTobacco useHyperlipidemia 9 Dom Molina. [address], [place], [address] , [place]. tel:[phone] Referring Provider: Wilmer Gamboa [address], [place], [place], [address]. tel:[phone] OFFICE/OUTPA TIENT VISIT, [facility], [address], [place], [place], [address], [place] tel:[phone] [facility] colon polyp1 (chief complaint) pancreatit is1 (chief complaint) hematuria1 (chief complaint) Polyp of colonHematuriaAcute pancreatitis without infectionAcute embolism and thrombosis of other specified veinsTobacco use 9 Dom Molina. [address], [place], [place], [address] , [place]. tel:[phone] Referring Provider: Wilmer Gamboa [address], [place], [place], [address]. tel:[phone] OFFICE/OUTPA TIENT VISIT, [facility], [address], [place], [address], [place] tel:[phone] [facility] acute pancreatit is1 (chief complaint) hematuria1 (chief complaint) Acute pancreatitis without infectionHematuriaA bnormal weight lossSolitary lung nodule 9 Dom Molina. [address], [place], [address] , [place]. tel: [phone] Referring Provider: Wilmer Gamboa [address], [place], [place], [address]. tel:[phone] OFFICE/OUTPA TIENT VISIT, [facility], [address], [place], [address], [place] tel:[phone] [facility] Physical (chief complaint) Encounter for general adult medical exam w abnormal findingsBPH with LUTSOccult blood in stoolHyperlipidemia Tobacco useEncntr for general adult medical exam w/o abnormal findings 9 Dom Herr [address], [place], [address] , [place]. [phone] Referring Provider: Wilmer Gamboa [address], [place], [place], [address]. tel:[phone] OFFICE/OUTPA TIENT VISIT, [facility], [address], [place], [place], [address], [place] tel:[phone] [facility] HLP (chief complaint) blood in stool (chief complaint) BPH (chief complaint) CAD1 (chief complaint) Occult blood in stoolHyperlipidemia BPH with LUTSFamily history of ischemic cardiac disease 8 Dom Molina. [address], [place], [place], [address] , [place]. tel:[phone] Referring Provider: Wilmer Gamboa [address], [place], [place], [address]. tel:[phone] OFFICE/OUTPA TIENT VISIT, [facility], [address], [place], [place], [address], [place] tel:[phone] [facility] HLP (chief complaint) lung nodule1 (chief complaint) rectal bleeding (chief complaint) HyperlipidemiaSolit duglas lung noduleOccult blood in stool 6-201 8 Dom Molina. [address], [place], [place], [address] , [place]. tel:[phone] Referring Provider: Wilmer Gamboa [address], [place], [place], [address]. tel:[phone] OFFICE/OUTPA TIENT VISIT, [facility], [address], [place], [place], [address], [place] tel:[phone] [facility] BPH (chief complaint) BPH1 (chief complaint) diverticul osis1 (chief complaint) lung nodule1 (chief complaint) HLP (chief complaint) HyperlipidemiaBPH with LUTSDiverticulosis of intestine without abscess with bleedingSolitary lung nodule 0-201 8 Dom Herr [address], [place], [place], [address] , [place]. [phone] Referring Provider: Wilmer Gamboa [address], [place], [place], [address]. tel:[phone] OFFICE/OUTPA TIENT VISIT, [facility], [address], [place], [place], [address], [place] tel:[phone] [facility] urgency1 (chief complaint) HLP (chief complaint) tobacco (chief complaint) Mixed hyperlipidemiaTobac co useOveractive bladderBody mass index (BMI) 30.0-30.9, adult Mar-0 - 7 Dom Herr [address], [place], [place], [address] , [place]. [phone] Referring Provider: Wilmer Gamboa [address], [place], [place], [address]. tel:[phone] OFFICE/OUTPA TIENT VISIT, [facility], [address], [place], [place], [address], [place] tel:[phone] [facility] OAB (chief complaint) HLP (chief complaint) Tobacco (chief complaint) nevus (chief complaint) Overactive bladderMixed hyperlipidemiaTobac co useNevus, non-neoplastic 6 Dom Molina. [address], [place], [place], [address] , [place]. tel:[phone] Referring Provider: Wil[address], [place], [place], [address]. tel:[phone] OFFICE/OUTPA TIENT VISIT, [facility], [facility] [address], [place], [place], [address], [place] tel:[phone] [facility] urinary urgency1 (chief complaint) HLP1 (chief complaint) facial itching (chief complaint) Overactive bladderItchMixed hyperlipidemia 5 Dom Molina. [address], [place], [place], [address] , [place]. [phone] Referring Provider: Wilmer Gamboa [facility] [address], [place], [place], [address]. tel:[phone] OFFICE/OUTPA TIENT VISIT, [facility], [address], [place], [place], [address], [place] tel:[phone] [facility] HLP (chief complaint) hypothyroi dism (chief complaint) vitamin D (chief complaint) Dietary surveillance and counselingOther and unspecified hyperlipidemiaHypot hyroidismUnspecifie d vitamin d deficiency 5 Dom Molina. [address], [place], [place], [address] , [place]. tel:[phone] Referring Provider: Wilmer Gamboa [address], [place], [place], [address]. tel:[phone] OFFICE/OUTPA TIENT VISIT, [facility], [address] [place], [address], [place] tel:[phone] [facility] OAB (chief complaint) colonsocop y (chief complaint) HLP (chief complaint) Dietary surveillance and counselingOther and unspecified hyperlipidemiaAtony of bladderScreening for malignant neoplasms of the prostateSpecial screening for malignant neoplasms, colon 5 Dom Molina. [address], [place], [place], [address] , [place]. tel:[phone] Referring Provider: Jesse Fernandes, [address], [place], [place], [address]. tel:[phone] OFFICE/OUTPA TIENT VISIT, [facility], [address], [place], [place], [address], [place] tel:[phone] [facility] HLP (chief complaint) OAB (chief complaint) Dietary surveillance and counselingOther and unspecified hyperlipidemiaAtony of bladder 3 Dom Molina. [address], [place], [place], [address] , [place]. [phone] Referring Provider: Wilmer Gamboa [address], [place], [place], [address]. tel:[phone] OFFICE/OUTPA TIENT VISIT, [facility], [address], [place], [place], [address], [place] tel:[phone] [facility] OAB (chief complaint) HLP (chief complaint) vitamin D (chief complaint) Dietary surveillance and counselingAtony of bladderOther and unspecified hyperlipidemiaUnspe cified vitamin d deficiency 3 Dom Molina. [address], [place], [place], [address] , [place]. [phone] Referring Provider: Jesse Fernandes, [address], [place], [place], [address]. tel:[phone] PREV VISIT, EST, AGE 40-64 [facility], [address], [place], [place], [address], [place] tel:[phone] [facility] Physical (chief complaint) Dietary surveillance and counselingRoutine Medical ExamRoutine Medical Exam 3 Dom Molina. [address], [place], [place], [address] , [place]. tel:[phone] Referring Provider: Jesse Fernandes, [address], [place], [place], [address]. tel:[phone] Family History Family Member Type Diagnosis Age At Onset Mother Problem (finding) Coronary artery disease Father Problem (finding) Unknown Disease Father Problem (finding) Cancer, unknown Brother Problem (finding) Alive and well Payers Payer name Insurance type Covered constitution party ID Authoriza tirajendra(s) [employer] [facility] [place] [facility] [id number] [facility] [place] [id number] Social History Type Description Quantity Date Captured Comments Alcohol Use Details Caffeine Use Details Unknown Tobacco Use Status Smoking Status Heavy tobacco smoker Sex Male Vital Signs Date / Time: Height Weight BMI Pulse Rate Blood Pressure Temperature Respiratory Rate Body Surface Area Head Circumference BMI percentile Pulse Ox Inhaled Ox 9:49 AM 68.00 in 198.40 lbs 30.1 7 kg/m eter (2) 71 /min 120/70 mm[Hg] 98.2 F 16 /min Chief Complaint And Reason For Visit From encounter dated 11/29/2024 09:32'. physical (chief complaint). Description: Pt needs annual physical pt has HLP Pt takes lipitor Pt denies any myalgia Pt denies any abd pain , pt denies any chest pain. pt sees cardiology .Pt denies any other complaints Pt overall feels fine. Plan Of Treatment Date Type Action Status Goal Zoster vaccine. Due on due Goal Depression screening. Due on due Goal Td vaccine. Due on due Goal PSA. Due on due Goal Cognitive assessment. Due on due Goal Pneumococcal vaccine. Due on due Goal Influenza vaccine. Due on due Goal Pneumococcal vaccine. Due on due Goal Cognitive assessment. Due on due Goal PSA. Due on due Goal Td vaccine. Due on due Goal Depression screening. Due on due Goal Zoster vaccine. Due on due Goal Influenza vaccine. Due on due Goal Abdominal ultrasound. Due on due Goal Sigmoidoscopy. Due on due Goal FOBT. Due on due Goal Zoster vaccine. Due on due Goal Depression screening. Due on due Goal Td vaccine. Due on due Goal PSA. Due on due Goal Cognitive assessment. Due on due Goal Pneumococcal vaccine. Due on due Goal Influenza vaccine. Due on due Goal Abdominal ultrasound. Due on due Goal Sigmoidoscopy. Due on due Goal FOBT. Due on due Goal FOBT. Due on due Goal Sigmoidoscopy. Due on due Goal Abdominal ultrasound. Due on due Goal Influenza vaccine. Due on due Goal Zoster vaccine. Due on due Goal Depression screening. Due on due Goal Td vaccine. Due on due Goal PSA. Due on due Goal Cognitive assessment. Due on due Goal Pneumococcal vaccine. Due on due Goal Pneumococcal vaccine. Due on due Goal Cognitive assessment. Due on due Goal PSA. Due on due Goal Td vaccine. Due on due Goal Depression screening. Due on due Goal Zoster vaccine. Due on due Goal FOBT. Due on due Goal Sigmoidoscopy. Due on due Goal Abdominal ultrasound. Due on due Goal Influenza vaccine. Due on due Goal Influenza vaccine. Due on due Goal Abdominal ultrasound. Due on due Goal Sigmoidoscopy. Due on due Goal FOBT. Due on due Goal Pneumococcal vaccine. Due on due Goal Cognitive assessment. Due on due Goal PSA. Due on due Goal Td vaccine. Due on due Goal Depression screening. Due on due Goal Zoster vaccine. Due on due Goal Influenza vaccine. Due on due Goal Abdominal ultrasound. Due on due Goal Sigmoidoscopy. Due on due Goal FOBT. Due on due Goal Pneumococcal vaccine. Due on due Goal Cognitive assessment. Due on due Goal PSA. Due on due Goal Td vaccine. Due on due Goal Depression screening. Due on due Goal Zoster vaccine. Due on due Goal Zoster vaccine. Due on due Goal Depression screening. Due on due Goal Td vaccine. Due on due Goal PSA. Due on due Goal Cognitive assessment. Due on due Goal Influenza vaccine. Due on due Goal Abdominal ultrasound. Due on due Goal Sigmoidoscopy. Due on due Goal FOBT. Due on due Goal Pneumococcal vaccine. Due on due Goal Zoster vaccine. Due on due Goal Depression screening. Due on due Goal Td vaccine. Due on due Goal PSA. Due on due Goal Cognitive assessment. Due on due Goal Influenza vaccine. Due on due Goal Abdominal ultrasound. Due on due Goal Sigmoidoscopy. Due on due Goal FOBT. Due on due Goal Pneumococcal vaccine. Due on due Goal Zoster vaccine. Due on due Goal Depression screening. Due on due Goal Td vaccine. Due on due Goal PSA. Due on due Goal Cognitive assessment. Due on due Goal Influenza vaccine. Due on due Goal Abdominal ultrasound. Due on due Goal Sigmoidoscopy. Due on due Goal FOBT. Due on due Goal Pneumococcal vaccine. Due on due Goal Tobacco cessation counseling completed Goal Pneumococcal vaccine. Due on due Goal FOBT. Due on due Goal Sigmoidoscopy. Due on due Goal Abdominal ultrasound. Due on due Goal Influenza vaccine. Due on due Goal Cognitive assessment. Due on due Goal PSA. Due on due Goal Td vaccine. Due on due Goal Depression screening. Due on due Goal Zoster vaccine. Due on due Goal Tobacco cessation counseling completed Goal Special diet education compl eted Goal Pneumococcal vaccine. Due on due Goal FOBT. Due on due Goal Sigmoidoscopy. Due on due Goal Abdominal ultrasound. Due on due Goal Influenza vaccine. Due on due Goal Cognitive assessment. Due on due Goal PSA. Due on due Goal Td vaccine. Due on due Goal Depression screening. Due on due Goal Zoster vaccine. Due on due Goal Special diet education compl eted Goal Tobacco cessation counseling completed Goal Sigmoidoscopy. Due on due Goal Abdominal ultrasound. Due on due Goal Influenza vaccine. Due on due Goal Cognitive assessment. Due on due Goal PSA. Due on due Goal Td vaccine. Due on due Goal Depression screening. Due on due Goal Zoster vaccine. Due on due Goal Pneumococcal vaccine. Due on due Goal FOBT. Due on due Goal Tobacco cessation counseling completed Goal Special diet education compl eted Goal FOBT. Due on due Goal Pneumococcal vaccine. Due on due Goal Zoster vaccine. Due on due Goal Depression screening. Due on due Goal Td vaccine. Due on due Goal PSA. Due on due Goal Cognitive assessment. Due on due Goal Influenza vaccine. Due on due Goal Abdominal ultrasound. Due on due Goal Sigmoidoscopy. Due on due Goal Special diet education compl eted Goal Tobacco cessation counseling completed Goal Sigmoidoscopy. Due on due Goal Abdominal ultrasound. Due on due Goal Influenza vaccine. Due on due Goal Cognitive assessment. Due on due Goal PSA. Due on due Goal Td vaccine. Due on due Goal Depression screening. Due on due Goal Zoster vaccine. Due on due Goal Pneumococcal vaccine. Due on due Goal FOBT. Due on due Goal Sigmoidoscopy. Due on due Goal Abdominal ultrasound. Due on due Goal Influenza vaccine. Due on due Goal Cognitive assessment. Due on due Goal PSA. Due on due Goal Td vaccine. Due on due Goal Depression screening. Due on due Goal Zoster vaccine. Due on due Goal Pneumococcal vaccine. Due on due Goal FOBT. Due on due Goal Special diet education compl eted Goal Sigmoidoscopy. Due on due Goal Abdominal ultrasound. Due on due Goal Influenza vaccine. Due on due Goal Cognitive assessment. Due on due Goal PSA. Due on due Goal Td vaccine. Due on due Goal Depression screening. Due on due Goal Zoster vaccine. Due on due Goal Pneumococcal vaccine. Due on due Goal FOBT. Due on due Goal Special diet education compl eted Goal FOBT. Due on due Goal Pneumococcal vaccine. Due on due Goal Zoster vaccine. Due on due Goal Depression screening. Due on due Goal Td vaccine. Due on due Goal PSA. Due on due Goal Cognitive assessment. Due on due Goal Influenza vaccine. Due on due Goal Abdominal ultrasound. Due on due Goal Sigmoidoscopy. Due on due Goal Sigmoidoscopy. Due on due Goal Depression screening. Due on due Goal Pneumococcal vaccine. Due on due Goal Cognitive assessment. Due on due Goal Influenza vaccine. Due on due Goal Abdominal ultrasound. Due on due Goal FOBT. Due on due Goal Td vaccine. Due on 16 due Goal PSA. Due on due Goal Zoster vaccine. Due on due Goal PSA. Due on due Goal Abdominal ultrasound. Due on due Goal Cognitive assessment. Due on due Goal Depression screening. Due on due Goal FOBT. Due on due Goal Influenza vaccine. Due on due Goal Pneumococcal vaccine. Due on due Goal Sigmoidoscopy. Due on due Goal Td vaccine. Due on 15 due Goal Zoster vaccine. Due on due Goal Colonoscopy. Due on 013 due Goal PSA. Due on due Goal Tobacco cessation counseling completed Goal Tobacco cessation counseling completed Referral Ordered: SHELBY GONSALVES -[facility] : Orthopaedic Surgery (related to Other bursitis of left elbow) ordered Referral Referred To: SHELBY GONSALVES [address] [place], [place], [phone] Ordered: Referrals: [facility]opathic Physicians : Orthopaedic Surgery. SHELBY GONSALVES. Evaluate and treat ordered Referral Ordered: Cardiology (related to Mixed hyperlipidemia) ordered Referral Ordered: Referrals: Cardiology. Evaluate and treat ordered Referral Ordered: CT ABDOMEN&PELVIS W/CONTRAST ordered Referral Ordered: Urology (related to Hematuria) ordered Referral Ordered: CT ABDOMEN W/O & W/DYE ordered Referral Ordered: US CAROTID ordered Referral Ordered: CARDIOVASCULAR STRESS TEST ordered Referral Ordered: Gastroenterology (related to Acute pancreatitis without infection) ordered Referral Ordered: MRI ABDOMEN W/DYE ordered Referral Ordered: Gastroenterology (related to Occult blood in stool) ordered Referral Ordered: Referrals: Gastroenterology. Evaluate and treat ordered Referral Ordered: Urology (related to Overactive bladder) ordered Referral Ordered: CT THORAX W/O DYE ordered Referral Ordered: Referrals: Urology. Evaluate and treat ordered Referral Ordered: CHEST X-RAY PA/LAT TWO-VIEWS ordered Referral Ordered: CT THORAX W/O & W/DYE ordered Referral Ordered: COLONOSCOPY AND BIOPSY ordered History Of Present Illness Encounter Date Complaint History Of Prese nt Illness physical Pt needs annual physical pt has HLP Pt takes lipitor Pt denies any myalgia Pt denies any abd pain , pt denies any chest pain. pt sees cardiology .Pt denies any other complaints Pt overall feels fine. emphysema1 Pt has emphysema . Pt denies any sob. Pt is a smoker Pt had negative chest CT recently polyp1 Pt has hyperplas tic polyp on c-scope early this year Pt denies any GI issue HLP Pt has HLP Pt is on lipitor Pt is getting it from cardiology pt denies any chest pain physical Pt needs annual physical pt has HLP Pt takes lipitor Pt denies any myalgia Pt denies any abd pain , pt denies any chest pain Pt was evaluated by cardiology last year and he had negative cardiac stress test. Pt c/o fluid in left elbow for one week Pt denies any injury Pt has normal ROM left elbow Pt denies any radiation to left forearm. Pt denies any pain or redness or warmth. Pt notices the swelling after playing golf. Pt denies any other complaints. hematuria1 Pt has asymptoma tic hematuria ,Pt denies any urinary symptoms. Hematuria resolved. Cytology missed by lab .CT urogram ok. lung nodule1 Pt has history o f lung nodule. Pt is a smoker. Pt denies any hemoptysis, ,sob or cough. Lung Ct ok HLP Pt has HLP ,Pt t akes lipitor and lipid profile ok. Pt denies any myalgia physical Pt needs annual physical pt has HLP Pt takes lipitor Pt denies any myalgia Pt denies any abd pain ,Pt denies any urinary symptoms pt could not get carotid doppler and abdominal aorta ultrasound done due to insurance issue. Pt has history of pancreatitis .Pt denies any abd pain Pt saw GI recently and he had negative lab work Pt never saw urology or did the CT urogram Pt denies any chest pain or sob Pt still smoking pt denies any hemoptysis emphysema1 Pt has emphysema . Pt denies any hemoptysis, sob or cough. Pt is a smoker HLP Pt has HLP Pt ta kes lipitor Pt denies any myalgia. his lipid profile is ok hematuria1 Pt has mild kierra turia. Pt denies any urinary symptoms or flank pain physical Pt needs annual physical .Pt has HLP Pt takes lipitor Pt denies any myalgia. Pt has BPH. Pt had turp Pt denies any urinary symptoms Pt has benign pulmonary nodule Pt denies any sob .Pt continues to smoke. Pt denies any other complaints physical Pt needs annual physical .Pt has HLP Pt takes lipitor Pt denies any myalgia. Pt has BPH. Pt had turp Pt denies any urinary symptoms Pt has benign pulmonary nodule Pt denies any sob .Pt continues to smoke. Pt denies any other complaints Physical Pt needs annual physical. Pt takes lipitor Pt denies any myalgia Pt has history of pancreatitis. Pt is seeing GI. Pt had negative pancreatitis CT two months ago. Pt denies any abdominal pain ,Pt has BPH s/p TURP. Pt doing ok ,Pt denies any urinary symptoms. pt continues to smoke. Pt denies any hemoptysis, sob or cough. Pt denies any other complaints pancreatitis1 Pt recently had endoscopic ultrasound which showed chronic pancreatitis. Pt denies any abdominal pain, nausea, vomiting, appetite change. He drinks socially 2-3 per week. Pt drinks 4-5 beers 2-3 per week. tobacco1 Pt continues to smoke. Pt denies any sob or cough ro hemoptysis hematuria1 Pt denies any UT I symptoms. his hematuria resolved HLP Pt did have mild high TG Pt since then has been working on low carb diet and his TG resolved. colon polyp1 Pt has hyperplas tic polyp Pt denies any GI bleeding Pt supposes to repeat colonoscopy in 5 years. Pt denies any GI issue pancreatitis1 Pt recently had acute edematous pancreatitis. 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 Pt denies any abdominal pain or any nausea, vomiting Pt denies any abdominal pain or jaundice. hematuria1 Pt has hematuria pt just seen urology and was cleared pt denies any UTi symptoms He was cleared by urology and was told to follow up PRN. pt denies any urinary symptoms post TURP. Pt told me he had benign prostate exam 6 months ago by urology acute pancreatitis1 Pt recently c/o acute onset of abdominal pain and he went to ER and was diagnosed with acute pancreatitis. Ct confirmed it. Pt was kept in hospital over night with IV fluid and he was discharged the next day. Pt currently denies any pain. Pt denies any nausea, vomiting, diarrhea. Pt tolerating liquid and food ok. Pt denies any jaundice. pt rarely drinks alcohol hematuria1 Pt denies any UT i symptoms. Physical Pt needs annual physical. pt takes lipitor every other day and his lipid panel is stable. His TG is slightly high. Pt denies any myalgia. pt has normal PSA. Pt denies any urinary symptoms. Pt denies any other complaints BPH Additional infor mation: Pt had BPH with LUTS. Pt underwent green light turp. Pt is seeing urology now. Pt had normal prostate exam by urology 3 months ago per pt. Pt is off BPH meds. Pt denies any urinary symptoms now. CAD1 His mom had CAD at 70s Pt denies any chest pain. HLP Pt has HLP. Pt t akes lipitor. His lipid profile responded very well to lipitor. Pt denies any myalgia blood in stool Additional infor mation: Pt has blood in stool. Pt has history of hemorrhoid. Pt made appointment with GI soon to discuss options. He had benign colonoscopy 2014. HLP Pt has HLP. pt h as family history of CAD. Pt denies any chest pain. 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 Pt still smoking. pt denies any sob rectal bleeding Additional infor mation: Pt is tested positive blood in stool. Pt denies any blood in stool when wiping Pt denies any GI issue. HLP Pt has history o f mild HLP He has been trying low fat and low carb diet lung nodule1 Pt has lung nodu le. pt still smoking. He smokes about one pack per day. Pt denies any sob diverticulosis1 Pt has diverticu losis. Pt has hemorrhoid. Pt denies any GI bleeding BPH1 Pt has PH with L UTS. pt did have some difficulty with urination and frequency and urgency. Pt is seeing urology and he underwent green light TURP recently. pt is off vesicae. pt denies any urinary symptoms BPH urgency1 Pt has urinary u regency and sometimes diffiuclty with urination. Pt is on vesicare and works sometimes Pt wilber any burning and dysuria. Pt has mild frequency sometimes Pt urinary symptoms mostly during the day tobacco Pt has 40 pack y ear tobacco. Pt is trying to quit. Pt denies any SOB HLP Pt has mild HLP. 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 Pt denies any active issue Tobacco pt smokes about 1/2 PPD for many years. Pt denies any SOB HLP pt has elevated TC and TG Pt has been working on low fat and low carb diet Pt denies any myalgia OAB Pt has OAB. Pt t akes vesicare and doing ok. Pt used to have urgency, frequency, which resolved when he takes vesicare Pt denies any dribblign or any diffiuclty with urination. Pt denies any dysuria urinary urgency1 Pt has urinary urgency and frequency intermittently for the past 6 months. Pt had it in the past and he tried a trail of vesicare which took care of it. Pt notices the urianry symptoms daily .Pt denies waking up at night to go to bathroom to urinate. Pt denies difficulty with urination. Pt denies any dribblign. Pt states that when he needs to go, he needs to go now. Pt denies any polyuria, polydipsia HLP1 Pt has histroy o f HLP. Pt has been trying low fat and low carb diet facial itching Pt notices media l left eye itching around the skin but not the eye itself for one day. Pt feels slighlty swelling medial corner of left eye. Pt denies any eye pain or any vision problem. pt denies any teary eyes Instructions Date Instruction Additional Infor ever Quit smoking Related to Encou nter for general adult medical exam w abnormal findings Special diet education Related t o Body mass index (BMI) 29.0-29.9, adult Quit smoking Related to Hemat uria Special diet education Related t o Body mass index (BMI) 29.0-29.9, adult Quit smoking Related to Polyp of colon Special diet education Related t o Body mass index (BMI) 29.0-29.9, adult Stop alcohol ingestion. Related to Acute pancreatitis without infection Special diet education Related t o Body mass index (BMI) 30.0-30.9, adult Quit smoking Related to Occul t blood in stool Special diet education Related t o Body mass index (BMI) 30.0-30.9, adult Stop smoking. Related to Hyper lipidemia Quit smoking Related to Hyper lipidemia Special diet education Related t o Body mass index (BMI) 30.0-30.9, adult Prescribed Activity and Exercise Education Related to Dietary Surveillance and Counseling Prescribed Diet Educ ation/Lifestyle Education Regarding Diet Related to Dietary Surveillance and Counseling Prescribed Activity and Exercise Education Related to Dietary Surveillance and Counseling Prescribed Diet Educ ation/Lifestyle Education Regarding Diet Related to Dietary Surveillance and Counseling Physical activity counseling Rel ated to Dietary surveillance counseling Decrease caloric intake Related to Dietary surveillance counseling Physical activity counseling Rel ated to Dietary surveillance counseling Decrease caloric intake Related to Dietary surveillance counseling Dietary counseling Related to Di etary surveillance counseling Decrease caloric intake Related to Dietary surveillance counseling Dietary counseling Related to Di etary surveillance counseling Decrease caloric intake Related to Dietary surveillance counseling Decrease caloric intake Related to Dietary surveillance counseling Dietary counseling Related to Di etary surveillance counseling Assessments Type Assessment Date assessment Encounter for genera l adult medical examination without abnormal findings Mental Status Date Cognitive Assessment Orientation - [place] ed to time, place, person, situation.
--- OUTSIDE RECORDS SUMMARY | 2025-03-01 09:33 | XMS_ITS | Clinical Summary ---
Author Organization [facility] Address [address] [place] [address] Care Team Providers Care Cotton Stomper Name Role Phone García Rolon MD Primary Care Provider [phone] [facility],non-owned Affiliates and Associated Physician Practices is amultiple site organization consisting of ambulatory clinics and hospital sitesin [place], [place], [place] and [place]. This disclosure is being madepursuant to the Care Everywhere program and may not contain all information available regarding this patient. Last updated 18.[facility] Allergies No known active allergies Medications * Be aware that medications may not be up to date on this document. Alwaysverify current medications with the patient. 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 Gender Identity Not on file Sexual Orientation Not on file Last Filed Vital Signs Vital Sign Reading Time Taken Comments Blood Pressure 100/72 10/03/2017 10:22 AM INDIVIDUALIZED [employer]UCATION PLAN AIDE Pulse 91 10/03/2017 10:22 AM INDIVIDUALIZED EDUCATION PLAN AIDE Temperature 36.9 C (98.5 F) 10/03/2017 10:22 AM INDIVIDUALIZED EDUCATION PLAN AIDE Respiratory Rate 16 10/03/2017 10:22 AM INDIVIDUALIZED EDUCATION PLAN AIDE Oxygen Saturation 98% 10/03/2017 10:22 AM INDIVIDUALIZED EDUCATION PLAN AIDE Inhaled Oxygen Concentration - - Weight 87.5 kg (193 lb) 10/03/2017 10:22 AM INDIVIDUALIZED EDUCATION PLAN AIDE Height 175.3 cm (5' 9) 10/03/2017 10:22 AM INDIVIDUALIZED EDUCATION PLAN AIDE Body Mass Index 28.5 10/03/2017 10:22 AM INDIVIDUALIZED EDUCATION PLAN AIDE Plan of Treatment Health Maintenance Due Date [...] VACCINE ( - 2023-2 5 season) 2024 DEPRESSION SCREENING 09/28/2024 INFLUENZA VACCINE (Season Ended) 2025 HEPATITIS B VACCINE Aged Out No longe [...] on patient's age to complete this topic Insurance MEDICARE MEDICARE [facility] SPECIALTY RISK MEDICARE Member Subscriber Plan / Payer (Ef fective for All Dates) Name:Bar Jeremy A Member ID:[id number] Relation to Subscriber:Self Name:Jeremy Jensen Subscriber ID:[id number] Payer ID:Not on file Group ID:Not on file Type:Medicare Address: [place] [id number] [place] [id number] [place] SPECIALTY RISK ATTN [facility] BASIC [employer] [place] [phone] Care Teams Cotton Stomper Relationship Specialty Start Date End Date García Rolon MD [address] [place] [address] PCP - General 08/11/18
[2025-03-01 09:43] LABS: Estimated Glomerular Filt Rate > 60
== END 2025-03-01 09:21 | disposition home or self-care (01) ==
PROVIDERS: PCP Emergency Medicine; Visit Provider Internal Medicine Gastroenterology
DX: I71.9 Aortic aneurysm of unspecified site, without rupture (principal); I72.3 Aneurysm of iliac artery; I70.0 Atherosclerosis of aorta; K86.1 Other chronic pancreatitis
CPT/HCPCS: 74177; Q9967